=== PATIENT | female | born 1965 | race Caucasian/White ===

== ENCOUNTER 2016-06-23 11:41 | Emergency (ER) | payer BC, OTHER ==
[~2016-06-23] VITALS: Ht 167.6 cm; Wt 50.0 kg
[~2016-06-23 11:41] MED LIST: LORTA5 PO; [UNRECOGNIZED DRUG - CODE] PO
[2016-06-23 11:42] VITALS: BP 195/82; PULSE 85; RESP 16; TEMP 98.4; O2SAT 100
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
[2016-06-23] MEDS ORDERED: NAPR500T PO (14:27)
[2016-06-23] MEDS ORDERED: ROBA750T PO (14:27)
[2016-06-23 14:29] VITALS: BP 126/72; PULSE 65
[2016-06-23] MEDS ORDERED: IBUPROFEN 800 MG TAB PO ONE (14:30)
== END 2016-06-23 15:07 | disposition home or self-care (01) ==
LOC: NEPB 11:41
DX: S39.012A Strain of muscle, fascia and tendon of lower back, initial encounter (principal); M62.838 Other muscle spasm; V43.52XA Car driver injured in collision with other type car in traffic accident, initial encounter; Y93.89 Activity, other specified; Y92.410 Unspecified street and highway as the place of occurrence of the external cause
CPT/HCPCS: 72110; 99284